=== PATIENT | male | born 2000 | race Two or more races ===

== ENCOUNTER 2025-09-02 02:52 | Emergency (ER) | payer MEDICAID, OTHER ==
[~2025-09-02] VITALS: Ht 167.6 cm; Wt 63.5 kg
[2025-09-02 03:03] VITALS: BP 116/66; TEMP 98
[2025-09-02 03:05] VITALS: O2SAT 98
[2025-09-02] MEDS ORDERED: IV NS 0.9% 1,000 ML IV ONE (04:00)
== END 2025-09-02 04:26 | disposition left against medical advice (07) ==
LOC: ER 02:54
DX: F10.129 Alcohol abuse with intoxication, unspecified (principal); Z53.29 Procedure and treatment not carried out because of patient's decision for other reasons; Y90.9 Presence of alcohol in blood, level not specified